=== PATIENT | female | born 1950 | race Caucasian/White ===

== ENCOUNTER 2024-04-17 07:13 | Day surgery (SDC) | payer OTHER ==
[~2024-04-17] VITALS: Ht 162.6 cm; Wt 75.7 kg
[~2024-04-17 07:13] MED LIST: CEFAZOLIN SOD 2 GM in D5W 50 ML IV ONE
[2024-04-17] MEDS ORDERED: MIDAZOLAM HCL 5 MG/ML VIAL (VERSED) IV ONE (08:36)
[2024-04-17] MEDS ORDERED: fentaNYL CITRATE/PF 100 MCG/2 ML AMP ONE ×2 (08:36→08:56)
[2024-04-17] MEDS ORDERED: LIDOCAINE JECT 2% PF 100 MG/5ML SYRINGE ONE (08:36)
[2024-04-17] MEDS ORDERED: WATER FOR IRRIGATION,STERILE 1,000 ML IRRIG.SOLN IR ONE (08:36)
[2024-04-17] MEDS ORDERED: NS IRRIG SOLN 5000 ML IR ONE (08:36)
[2024-04-17] MEDS ORDERED: PROPOFOL 200MG/ 20ML VIAL (DIPRIVAN) IV ONE (08:36)
[2024-04-17] MEDS ORDERED: LR 1,000 ML IV.SOLN IV ONE (08:36)
[2024-04-17] MEDS ORDERED: NS IRRIG SOLN 1000 ML IR ONE (08:36)
[2024-04-17] MEDS ORDERED: PHENYLEPHRINE HCL 10 MG/ML VIAL (NEOSYNEPHRINE) ONE (08:36)
[2024-04-17] MEDS ORDERED: GLYCOPYRROLATE 0.2 MG/ML VIAL ONE (08:36)
[2024-04-17] MEDS ORDERED: ONDANSETRON HCL 4 MG/2 ML VIAL ONE (08:36)
[2024-04-17] MEDS ORDERED: ROCURONIUM BROMIDE 10 MG/ML (ZEMURON) ONE (08:36)
[2024-04-17] MEDS ORDERED: SEVOFLURANE 15 MIN GAS INH ONE (08:36)
[2024-04-17] MEDS ORDERED: METOCLOPRAMIDE HCL 10 MG/2 ML VIAL ONE (08:36)
[2024-04-17] MEDS ORDERED: MIDAZOLAM HCL 2 MG/2 ML VIAL (VERSED) ONE (08:56)
[2024-04-17] MEDS ORDERED: CLINDAMYCIN 900 mg/50mL D5W 50 ML IV ONE (09:00)
[2024-04-17] MEDS ORDERED: KETOROLAC TROMETHAMINE 30 MG VIAL IVP PRN (09:45)
[2024-04-17] MEDS ORDERED: ONDANSETRON HCL 4 MG/2 ML VIAL IVP PRN (09:45)
[2024-04-17 12:23] VITALS: O2SAT 96
[2024-04-17 15:13] VITALS: BP_SYST 154; PULSE 68; RESP 18
== END 2024-04-17 11:55 | disposition home or self-care (01) ==
LOC: SMU 07:13 → SDS 07:13
PROVIDERS: ATTEND Specialist
DX: N95.0 Postmenopausal bleeding (principal); D25.0 Submucous leiomyoma of uterus; N85.8 Other specified noninflammatory disorders of uterus; N85.00 Endometrial hyperplasia, unspecified; E03.9 Hypothyroidism, unspecified; I10 Essential (primary) hypertension; J44.9 Chronic obstructive pulmonary disease, unspecified; E78.00 Pure hypercholesterolemia, unspecified; Z98.891 History of uterine scar from previous surgery; Z90.49 Acquired absence of other specified parts of digestive tract; Z98.890 Other specified postprocedural states; Z88.2 Allergy status to sulfonamides; Z88.8 Allergy status to other drugs, medicaments and biological substances; Z79.890 Hormone replacement therapy; Z79.899 Other long term (current) drug therapy
CPT/HCPCS: 87081; 58558; 88305; J3490 ×2; J2765; J2250; J2405; J2704; J3010; J7120; C1819; J0690; J7060